=== PATIENT | female | born 2000 | race Asian ===

== ENCOUNTER → 2023-12-02 11:04 | Outpatient (BNVA) | payer MEDICAID, SELFPAY | PROVIDERS: Visit Provider Podiatrist Foot & Ankle Surgery | DX: M79.671 Pain in right foot (principal); M79.672 Pain in left foot; M76.821 Posterior tibial tendinitis, right leg; M76.822 Posterior tibial tendinitis, left leg; M21.6X1 Other acquired deformities of right foot; M21.6X2 Other acquired deformities of left foot | CPT/HCPCS: 73630 ==

== ENCOUNTER 2024-07-21 10:59 | Emergency (ER) | payer MEDICAID, SELFPAY ==
[2024-07-21 11:07] VITALS: BP 132/87; PULSE 105; RESP 18; TEMP 36.7; O2SAT 98; BMI 28.3
--- NOTE | 2024-07-21 11:08 | ECG_ITS ---
[employer] Test Date: 2024-07-21 Pat Name: Nighat Zamora Department: Room: Gender: Female Agriculture Instructor: : 2000 Requested By: Garrick Nguyen Order Number: [id number] Dima MD: Evan Thompson M.D. 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 [email or web address]
--- NOTE | 2024-07-21 11:24 | W.ED.ABDPA2 ---
HPI - Abdominal Pain General: Chief Complaint: Abdominal Pain Stated Complaint: abnormal ekg - doctor sent Time Seen by Provider: 07/21/24 11:02 Source: patient Mode of arrival: ambulatory Limitations: no limitations History of Present Illness: 23-year-old female who states that she had seen her psychiatrist yesterday had an EKG that showed a prolonged QT was told she need to come to the ER to have it rechecked. She has no symptoms she denies any pain denies any vomiting or diarrhea. Associated Symptoms: Denies chills, diarrhea, dysuria, fever(s), nausea and vomiting Related Data Home Medications Medication Instructions Recorded Confirmed Unable to Assess 12/02/23 12/02/23 Allergies Allergy/AdvReac Type Severity Reaction Status Date / Time No Known Allergies Allergy Verified 12/02/23 11:11 Review of Systems Const: Denies: fever(s), chills, body aches or change in appetite ENMT: Denies: throat pain or dental pain Card: Denies: chest pain Resp: Denies: dyspnea GI: Denies: abdominal pain, nausea, vomiting or diarrhea : Denies: dysuria Musc: Denies: neck pain or back pain Skin/Breast: Denies: rash Neuro: Denies: headache(s) PFSH ED PFSH: Medical History (Updated 07/21/24 @ 11:23 by Garrick Nguyen MD) Psychiatric care Physical Exam Const: COMMON NORMALS: no acute distress, patient oriented x3 and healthy appearing HENMT: COMMON NORMALS: normocephalic and atraumatic HEAD & SCALP: normocephalic and atraumatic Eye: COMMON NORMALS: Equal, round and reactive pupils present and EOMs intact bilaterally PUPIL: Yes Equal, round and reactive pupils present Neck/C-Spine: COMMON NORMALS: full ROM and supple Chest: COMMONS NORMALS: normal inspection of the chest Resp: COMMON NORMALS: normal respiratory effort Cardio: COMMON NORMALS: regular rate, regular rhythm and No murmurs present (Cardio) RATE: regular rate RHYTHM: regular rhythm Extremity: COMMON NORMALS: normal to inspection and full ROM Neuro: COMMON NORMALS: patient oriented x3, moves all extremities and no focal motor deficits Psych: COMMON NORMALS: mental status grossly normal, Normal thought process present and cooperative THOUGHT PROCESS: Normal thought process present Skin: COMMON NORMALS: no rashes or lesions noted and no wounds GENERAL SKIN EXAM: no rashes or lesions noted Course Vital Signs: Vital signs: Vital Signs Temperature 98.1 F 07/21/24 11:07 Pulse Rate 105 H 07/21/24 11:07 Respiratory Rate 18 07/21/24 11:07 Blood Pressure 132/87 07/21/24 11:07 Pulse Oximetry 98 07/21/24 11:07 Oxygen Delivery Me thod Room Air 07/21/24 11:07 MDM - Abdominal Pain Medical Decision Making Patient presents here with prolonged QT on EKG yesterday repeat EKG here is completely normal her QTc is 412 he is has no complaints she stable for discharge follow-up with PCP return if worsening. Medical Records I reviewed the patient's medical records. No radiology studies performed this visit EKG Data EKG 1: I personally reviewed and interpreted this EKG as follows: EKG interpretation date: 07/21/24 EKG interpretation time: 11:14 Interpretation: nsr hr [address] elevation qrs 85 qtc 412 Discharge Plan Discharge Patient Disposition: Home Clinical Impression: Well adult, Abnormal ECG Condition: Stable Prescriptions: No Action Unable to Assess Discharge Orders: Discharge ED (Routine); Ordered 07/21/24 Ordered By: Garrick Nguyen Referrals: Rosana aBrr MD [Primary Care Provider] - 4-7 days Discharge Diet: Advance as tolerated Discharge Activity: Resume usual activity Coding Level of Care Code ED Filter Changing Technician for Chg Antonia
[2024-07-21 11:34] VITALS: BP 115/89; PULSE 91; O2SAT 98
== END 2024-07-21 11:35 | disposition home or self-care (01) ==
PROVIDERS: Emergency Provider Emergency Medicine; PCP Family Medicine
DX: R94.31 Abnormal electrocardiogram [ECG] [EKG] (principal)
CPT/HCPCS: 93005; 99283